=== PATIENT | female | born 1995 | race African-American/Black ===

== ENCOUNTER 2023-08-23 17:16 | Emergency (ER) | payer SELFPAY ==
[~2023-08-23] VITALS: Ht 160 cm; Wt 65.9 kg
[2023-08-23] MEDS ORDERED: Penicillin V-K 250 MG TAB PO ONE (17:45)
[2023-08-23] MEDS ORDERED: PEN-VEE K500 MG PO (17:50)
[2023-08-23 18:13] VITALS: BP 141/94; PULSE 81; TEMP 98.5
== END 2023-08-23 18:13 | disposition home or self-care (01) ==
LOC: COL.ER 17:16
DX: K02.9 Dental caries, unspecified (principal)